=== PATIENT | male | born 1975 | race Caucasian/White ===

== ENCOUNTER 2022-12-03 05:51 | Day surgery (SDC) | payer BC ==
[2022-11-30 08:46] VITALS: BMI 26.6
[2022-12-03] MEDS ORDERED: fentaNYL PF 100 MCG/2 ML SYRINGE ONE (06:39)
[2022-12-03] MEDS ORDERED: Bupivacaine/Epinephrine 0.25% 30 ML VIAL ONE (06:40)
[2022-12-03] MEDS ORDERED: Scopolamine 1.5 mg/72 hour Patch ONE (06:46)
[2022-12-03] MEDS ORDERED: Promethazine HCl 25 MG/ML VIAL ONE (06:49)
[2022-12-03] MEDS ORDERED: Sodium Chloride 0.9% 100 ML ONE (07:17)
[2022-12-03] MEDS ORDERED: CEFAZOLIN 2 GM VIAL ONE (07:17)
[2022-12-03] MEDS ORDERED: Dexamethasone 20 MG/5 ML VIAL ONE (07:29)
[2022-12-03] MEDS ORDERED: Lidocaine 1% PF 5 ML VIAL ONE (07:29)
[2022-12-03] MEDS ORDERED: Ondansetron PF 4 MG/2 ML Vial ONE (07:29)
[2022-12-03] MEDS ORDERED: PROPOFOL 200 MG/20 ML VIAL ONE (07:29)
[2022-12-03] MEDS ORDERED: Fentanyl 100 MCG/2 ML VIAL ONE (08:38)
== END 2022-12-03 09:50 | disposition home or self-care (01) ==
LOC: SDC 05:51
PROVIDERS: ATTEND Surgery
PROC: 07BH0ZX Excision of Right Inguinal Lymphatic, Open Approach, Diagnostic (ICD-10-PCS; principal; 2022-12-03)
DX: C82.15 Follicular lymphoma grade II, lymph nodes of inguinal region and lower limb (principal); E78.00 Pure hypercholesterolemia, unspecified; Z79.899 Other long term (current) drug therapy; Z88.2 Allergy status to sulfonamides
CPT/HCPCS: 87070; 87205; 88184; 88307; 88341; 88342; 88360; J1100; J2405; J2550; J2704; J3010; J3490

== ENCOUNTER 2022-12-19 11:00 | Outpatient (CLI) | payer BC | END 2022-12-19 11:01 | disposition home or self-care (01) | LOC: PET 11:00 | PROVIDERS: ATTEND Internal Medicine | DX: C82.80 Other types of follicular lymphoma, unspecified site (principal); R59.0 Localized enlarged lymph nodes | CPT/HCPCS: 78815; A9552 ==

== ENCOUNTER 2023-03-06 09:30 | Outpatient (CLI) | payer BC | END 2023-03-06 09:31 | disposition home or self-care (01) | LOC: PET 09:30 | PROVIDERS: ATTEND Internal Medicine | DX: C82.80 Other types of follicular lymphoma, unspecified site (principal) | CPT/HCPCS: 78815; A9552 ==

== ENCOUNTER 2023-10-08 09:30 | Outpatient (CLI) | payer BC | END 2023-10-08 09:31 | disposition home or self-care (01) | LOC: PET 09:30 | PROVIDERS: ATTEND Internal Medicine | DX: C82.90 Follicular lymphoma, unspecified, unspecified site (principal); R59.0 Localized enlarged lymph nodes | CPT/HCPCS: 78815; A9552 ==

== ENCOUNTER 2024-03-24 08:49 | Outpatient (CLI) | payer BC ==
[2024-03-24] MEDS ORDERED: Iopamidol 370 76% 100 ML VIAL ONE (11:17)
== END 2024-03-24 08:50 | disposition home or self-care (01) ==
LOC: BICCT 08:49
PROVIDERS: ATTEND Internal Medicine
DX: C82.90 Follicular lymphoma, unspecified, unspecified site (principal); K76.89 Other specified diseases of liver; R59.0 Localized enlarged lymph nodes
CPT/HCPCS: 71260; 74177; Q9967

== ENCOUNTER 2024-04-03 08:55 | Emergency (ER) | payer BC ==
[2024-04-03] MEDS ORDERED: Ondansetron PF 4 MG/2 ML Vial ONE (09:14)
[2024-04-03] MEDS ORDERED: fentaNYL 50 mcg/mL 1 mL Vial ONE (09:14)
[2024-04-03] MEDS ORDERED: Ketorolac Tromethamine 30 MG (1 mL) VIAL ONE (09:14)
[2024-04-03 09:34] LABS: #Basophils 0.03 10x3/uL (0.0-0.2); %Basophils 0.3 % (0.0-1.0); %Eosinophils 1.5 % (0.0-10.0); %Monocytes 11.3 % (0.0-10.0); %Neutrophils 64.7 % (42.0-75.0); Hemoglobin 16.3 g/dL (14.0-18.0); Mean Corpuscular HGB CONC 34.7 g/dL (32.0-36.0); Mean Corpuscular Hemoglobin 29.4 pg (27.0-31.0); Mean Corpuscular Volume 84.8 fL (78.0-98.0); Mean Platelet Volume 9.4 fL (7.4-10.4); Platelet Count 309 10x3/uL (130-400); RBC Distribution Width 13.3 % (11.5-14.5); Red Blood Cell (RBC) Count 5.54 mill/uL (4.70-6.10)
[2024-04-03 10:02] LABS: ALT (SGPT) 46 U/L (8-55); AST (SGOT) 38 U/L (5-34); Albumin 3.9 g/dL (3.5-5.0); Alkaline Phosphatase 65 U/L (40-110); Anion Gap 15 mmol/L (10-20); BUN (Urea Nitrogen) 16 mg/dL (8.9-20.6); Bilirubin, Total 1.1 mg/dL (0.2-1.2); Calc. Creatinine Clearance 0 mL/min (70-130); Calcium 9.4 mg/dL (7.8-10.44); Carbon Dioxide 22 mmol/L (22-29); Chloride 104 mmol/L (98-107); Estimated GFR 95; Glucose 94 mg/dL (70-105); Lipase 37 U/L (8-78); Potassium 3.8 mmol/L (3.5-5.1); Protein, Total 6.9 g/dL (6.0-8.3); Sodium 137 mmol/L (136-145)
[2024-04-03 10:34] LABS: Bacteria/HPF None Seen HPF (None Seen); Bilirubin Negative (Negative); Blood, Urine Negative (Negative); CAUTI Indications for Culture Dysuria,urgency,freq; Clarity Clear (Clear); Glucose, Urine (Dipstick) Normal (Negative); Ketone, Urine Trace mg/dL (Negative); Leukocyte Negative Leu/uL (Negative); Nitrite Negative (Negative); Protein, Urine (Dipstick) 30 mg/dL (Neg-Trace); RBC/HPF 0-3 HPF (0-3); Specific Gravity, Urine 1.039 (1.002-1.036); Squamous Epithelial None Seen HPF (0-3); Urobilinogen Normal mg/dL (Less than 2); WBC/HPF 0-3 HPF (0-3)
[2024-04-03 10:41] LABS: Urine Culture Reflex No No
[2024-04-03] MEDS ORDERED: HYDROcodone/Acetaminophen 5/325 mg Tablet ONE (12:43)
== END 2024-04-03 12:50 | disposition home or self-care (01) ==
LOC: ERS 08:55
DX: M54.50 Low back pain, unspecified (principal)
CPT/HCPCS: 36415; 74176; 80053; 81001; 83690; 85025; 85379; 87086; 96361; 96374; 96375; J1885; J2405; J3010

== ENCOUNTER 2024-04-03 19:44 | Emergency (ER) | payer BC ==
[2024-04-03] MEDS ORDERED: Ketorolac Tromethamine 30 MG (1 mL) VIAL ONE (20:02)
[2024-04-03] MEDS ORDERED: Morphine 4 MG/ML VIAL ONE (20:02)
[2024-04-03] MEDS ORDERED: LORazepam 2 MG/ML SYR.(CARPUJECT) ONE (20:03)
[2024-04-03] MEDS ORDERED: Dexamethasone 10 MG/ML VIAL ONE (20:20)
[2024-04-03 20:37] LABS: #Basophils Less than 0.03 10x3/uL (0.0-0.2); %Basophils 0.2 % (0.0-1.0); %Eosinophils 1.9 % (0.0-10.0); %Lymphocytes 18.5 % (21.0-51.0); %Monocytes 12.4 % (0.0-10.0); %Neutrophils 66.7 % (42.0-75.0); Hemoglobin 15.5 g/dL (14.0-18.0); Mean Corpuscular HGB CONC 34.4 g/dL (32.0-36.0); Mean Corpuscular Hemoglobin 29.6 pg (27.0-31.0); Mean Platelet Volume 9.4 fL (7.4-10.4); Platelet Count 286 10x3/uL (130-400); RBC Distribution Width 13.2 % (11.5-14.5); Red Blood Cell (RBC) Count 5.23 mill/uL (4.70-6.10)
[2024-04-03 20:49] LABS: ALT (SGPT) 41 U/L (8-55); AST (SGOT) 31 U/L (5-34); Albumin 3.7 g/dL (3.5-5.0); Alkaline Phosphatase 69 U/L (40-110); Anion Gap 15 mmol/L (10-20); BUN (Urea Nitrogen) 16 mg/dL (8.9-20.6); Bilirubin, Total 0.7 mg/dL (0.2-1.2); Calc. Creatinine Clearance 0 mL/min (70-130); Calcium 8.9 mg/dL (7.8-10.44); Carbon Dioxide 23 mmol/L (22-29); Chloride 104 mmol/L (98-107); Estimated GFR 92; Globulin 2.8 g/dL (2.4-3.5); Glucose 90 mg/dL (70-105); Lipase 58 U/L (8-78); Potassium 3.4 mmol/L (3.5-5.1); Protein, Total 6.5 g/dL (6.0-8.3); Sodium 139 mmol/L (136-145)
== END 2024-04-03 21:07 | disposition home or self-care (01) ==
LOC: ERS 19:44
DX: M62.830 Muscle spasm of back (principal); Z79.899 Other long term (current) drug therapy; M54.50 Low back pain, unspecified
CPT/HCPCS: 36415; 74176; 80053; 81001; 83690; 85025; 85379; 87086; 96361; 96374; 96375; J1100; J1885; J2060; J2270; J2405; J3010

== ENCOUNTER 2024-04-08 08:36 | Outpatient (CLI) | payer BC | END 2024-04-08 08:37 | disposition home or self-care (01) | LOC: SCSMRI 08:36 | PROVIDERS: ATTEND Internal Medicine | DX: K76.9 Liver disease, unspecified (principal); C85.90 Non-Hodgkin lymphoma, unspecified, unspecified site | CPT/HCPCS: 74183 ==

== ENCOUNTER 2024-08-31 12:25 | Outpatient (CLI) | payer BC | END 2024-08-31 12:26 | disposition home or self-care (01) | LOC: BICCT 12:25 | PROVIDERS: ATTEND Internal Medicine | DX: C82.80 Other types of follicular lymphoma, unspecified site (principal) | CPT/HCPCS: 70491; 71260; 74177 ==

== ENCOUNTER 2024-11-09 14:36 | Outpatient (CLI) | payer BC | END 2024-11-09 14:37 | disposition home or self-care (01) | LOC: SCSRAD 14:36 | PROVIDERS: ATTEND Family Medicine | DX: M79.644 Pain in right finger(s) (principal) ==

== ENCOUNTER 2024-12-02 12:21 | Outpatient (CLI) | payer BC ==
[~2024-12-02 12:21] MED LIST: Magnevist 469MG/ML 20 ML VIAL ONE
== END 2024-12-02 12:22 | disposition home or self-care (01) ==
LOC: BICMRI 12:21
PROVIDERS: ATTEND Orthopaedic Surgery
DX: R22.31 Localized swelling, mass and lump, right upper limb (principal)